=== PATIENT | male | born 1980 | race Caucasian/White ===

== ENCOUNTER 2016-11-11 20:00 | Emergency (ER) | payer OTHER ==
[~2016-11-11] VITALS: Ht 177.8 cm; Wt 108.0 kg
[2016-11-11 20:04] VITALS: BP 159/104; PULSE 98; TEMP 37.1; O2SAT 97; Ht 177.8 cm; Wt 108.0 kg
[2016-11-11] MEDS ORDERED: PRED50TA PO (20:30)
--- NOTE | 2016-11-11 20:30 | EMERGENCY ROOM VISIT NOTE ---
ED Visit Note First contact with patient: 20:12 Chief Complaint: LEFT Ear Closed Off, RIGHT Ear Drainage History of Present Illness: Patient is a 36-year-old male who presents the emergency department today for evaluation of drainage from the RIGHT ear. The patient reports a long-standing history of otitis media infections secondary to abnormal structure of the eustachian tubes bilaterally. He's had issues since he was 18 months of age. The patient had a tympanostomy tube placed in the LEFT tympanic membrane on Monday. He noticed a perforation to the RIGHT tympanic membrane on Monday with continued drainage. He's had persistent yellowish drainage from the ear since. He reports muffling. To the ear as well. The patient is currently using topical antibiotic drops as well as Augmentin orally. He reports persistent discharged of the RIGHT ear which was concerning to him. The patient complains of mild discomfort rating his pain a 0 /10. He denies any headaches, distance, lightheadedness, nausea, vomiting, or neck pain/stiffness. Medications: Reviewed and discussed with the patient. Allergies: No known allergies. PMH: No pertinent past medical history. SHx: Patient is a 36-year-old male who lives locally. ROS: All pertinent positive and negative review of systems are appropriately documented in the History of Present Illness. Physical Exam: VITAL SIGNS - Vital signs and nursing notes were reviewed. GENERAL - Well nourished, well developed 36-year-old male in no acute distress. Pt communicates well with provider and answers questions appropriately. SKIN - Without rash. HEAD - NC/AT with no obvious deformities. EYES - PERRL with EOMI bilaterally. Sclera without injection. Palpebral conjunctiva pink and moist. EARS - No deformities of external structures noted on gross examination bilaterally. No pain elicited with palpation of the tragus bilaterally. RIGHT external auditory canal with yellowish discharge noted in the inferior portion of the tympanic membrane. I'm unable to appreciate perforation. There is no bleeding noted. The LEFT tympanic membrane is with tympanostomy tube in place. No active discharge or drainage noted. NOSE - Midline and without cyanosis. No purulent drainage noted. Nasal mucosa without mucus discharge. MOUTH/OROPHARYNX - Without perioral cyanosis. Buccal mucosa pink and moist and without leukoplakia. Tongue midline with equal elevation of palate bilaterally. No tonsillar hypertrophy, erythema, or exudates noted. Good dentition noted. NECK - Neck with FROM. Supple to palpation. No lymphadenopathy noted. No nuchal rigidity. ED Course: Patient was seen and evaluated by myself. I had a lengthy conversation with the patient returning symptoms. The patient has a tympanic perforation with persistent drainage. He is no significant findings today on exam. The patient was encouraged to continue his antibiotic drops as well as Augmentin. The patient was provided prednisone for her symptoms to see if this helped with inflammation. He has an appointment in follow-up with ENT on Monday. He will keep this appointment or return to the emergency department for any changing or worsening symptoms. Patient discharged home afebrile and in good condition. In the evaluation and treatments patient, the following differential diagnoses were considered: Cholesteatoma, otitis media, otitis externa, foreign body, amongst others. Impression: RIGHT Tympanic Perforation Discharge Instructions: You've been seen in the emergency department today for tympanic perforation with persistent drainage. You have been prescribed Prednisone 50 mg to be taken orally once a day for the next 4 days. This is an anti-inflammatory medicine to be used to help minimize your symptoms. You should take the COMPLETE course of the medication. Continue your antibiotics as prescribed. Follow-up with your ENT on Monday as scheduled. Return for any changing or worsening symptoms. Current/Historical Medications Scheduled Amoxicillin & Pot Clavulanate (Augmentin 875-125 mg), 1 TAB PO BID Fluticasone Propionate (Nasal) (Flonase Allergy Relief), 1 SPRAY ALEKSANDR BID Multivitamin (Multivitamin), 1 TAB PO DAILY Prednisone (Prednisone), 50 MG PO DAILY Miscellaneous Medications Finasteride (Propecia), Unknown Dose PO Allergies Coded Allergies: No Known Allergies (Unverified , 11/11/16) Vital Signs Date Time Temp Pulse Resp B/P Pulse Ox O2 Delivery O2 Flow Rate FiO2 11/11/16 20:04 37.1 98 16 159/104 97 Room Air Medications Administered Medications (Trade) Dose Ordered Sig/Will Route Start Time Stop Time Status Last Admin Dose Admin Prednisone (PredniSONE TAB) 60 mg NOW STAT PO 11/11/16 20:20 11/11/16 20:21 DC 11/11/16 20:27 60 MG Departure Information Impression Primary Impression: Drainage from ear, right Additional Impression: Tympanic membrane perforation Dispostion Home / Self-Care Condition GOOD Prescriptions Prednisone (Prednisone) 50 Mg Tab 50 MG PO DAILY for 4 Days, #4 TAB Prov: Levon Mcrae PA-C 11/11/16 Referrals No Doctor, Assigned (PCP) Patient Instructions My [facility] Additional Instructions You've been seen in the emergency department today for tympanic perforation with persistent drainage. You have been prescribed Prednisone 50 mg to be taken orally once a day for the next 4 days. This is an anti-inflammatory medicine to be used to help minimize your symptoms. You should take the COMPLETE course of the medication. Continue your antibiotics as prescribed. Follow-up with your ENT on Monday as scheduled. Return for any changing or worsening symptoms. Problem Qualifiers Additional Impression: Tympanic membrane perforation Laterality: right Qualified Codes: H72.91 - Unspecified perforation of tympanic membrane, right ear
[2016-11-11] MEDS ORDERED: FLUT0.15 NAE (20:33)
[2016-11-11] MEDS ORDERED: AMOX875T PO (20:33)
[2016-11-11] MEDS ORDERED: MULT-506 PO (20:33)
[2016-11-11] MEDS ORDERED: FINA1TAB62 PO (20:33)
== END 2016-11-11 20:34 | disposition home or self-care (01) ==
LOC: C.EDB 20:03 → C.EDD 20:34
DX: H92.11 Otorrhea, right ear (principal); H72.91 Unspecified perforation of tympanic membrane, right ear